=== PATIENT | female | born 2000 | race Caucasian/White ===

== ENCOUNTER 2023-02-25 13:50 | Emergency (ER) | payer OTHER, SELFPAY ==
[2023-02-25 13:59] VITALS: BP 139/87; PULSE 86; RESP 18; TEMP 37.1; O2SAT 100; BMI 30.9
[2023-02-25 14:19] LABS: Appearance Urine UA CLEAR; Bilirubin Urine UA NEGATIVE (NEGATIVE); Color Urine UA YELLOW; Glucose Urine UA NEGATIVE (Negative); Ketones Urine UA NEGATIVE (NEGATIVE); Leukocyte Esterase Urine UA NEGATIVE (NEGATIVE); Nitrite Urine UA NEGATIVE (Negative); Occult Blood Urine UA NEGATIVE (Negative); Protein Urine UA 2+ (Negative); Specific Gravity Urine UA 1.015 (1.000-1.035)
[2023-02-25 14:26] LABS: Bacteria Urine None Seen; Culture Indicated Urine Cult Not Indicated; RBC Urine None Seen (0-5/HPF); Squamous Epithelial Cell Urine 5-10 /HPF (0-5/HPF); WBC Urine None Seen (0-5/HPF)
[2023-02-25 15:09] LABS: Pregnancy Test Urine Negative (Negative)
--- NOTE | 2023-02-25 15:09 | PC.NURSE ---
pt reports that she is having pain in her hips and pelvic area that she describes as throbbing and sharp. pt states that the last time she has this feeling was when she had trichomonis without knowing about it for a long time. pt recently had pelvic swabs and pap smear done that came back normal and her std check was negative. pt denies having any vaginal discharge or abnormal bleeding. Denies fever, n/v/d. A&ox4
--- NOTE | 2023-02-25 15:16 | DI.US.S_ITS ---
PROCEDURE: US PELVIC COMPLETE INDICATIONS: PAIN TECHNIQUE: Real-time scanning was performed of the pelvic organs, with image documentation. Additional endovaginal scanning was necessary due to incomplete visualization of the adnexal and endometrial structures by transabdominal scanning. COMPARISON: None. FINDINGS: Uterus: Uterus is anteverted and normal in size at 9.1 x 5.6 x 4.8 cm. The myometrium is homogeneous. The endometrium measures 10 mm combined thickness. Ovaries: The right ovary measures 4.6 x 3.6 x 3.0 cm, with a calculated ovarian volume of 26 cc. The left ovary measures 5.0 x 3.0 x 3.0 cm, with a calculated ovarian volume of 24 cc. The ovaries have a normal sonographic appearance. Less than 12 follicles can be seen in each ovary. No adnexal masses are seen. There is a 2.4 x 2.2 x 2.0 cm right simple cyst or dominant follicle. Other: Trace free fluid is noted within the cul-de-sac. IMPRESSION: Trace fluid in the cul-de-sac. Otherwise unremarkable pelvic ultrasound. We strive to produce accurate, complete, and clear reports of imaging services. To assist us in improving patient care, this report was composed using standard report templates and voice recognition software. Therefore, it may contain abnormal punctuation, insertions and/or omissions. Occasional wrong-word or sound-alike substitutions may occur. Though we review the report and make efforts to correct it, we do recommend that the report be read carefully in proper context to recognize any text inaccuracies. Dictated by: Lynn Blevins M.D. on 02/25/2023 at 16:49 Approved by: Lynn Blevins M.D. on 02/25/2023 at 16:51
--- NOTE | 2023-02-25 15:16 | ED_ITS ---
HPI - Female Genitourinary General Chief complaint: Urogenital-Female Stated complaint: SEVERE PELVIC PAIN Time Seen by Provider: 02/25/23 15:06 Source: patient Mode of arrival: Ambulatory History of Present Illness HPI Narrative: 23-year-old female with no reported past medical history presents by private vehicle from home for bilateral pelvic pain. Patient states that she is had this pain for several months, 11 days ago she saw her OBGYN, who performed STD testing, a Pap smear, and pelvic exam and could not find any abnormalities. She states that her STD panel was negative and no cause for her pain was identified. She continues to have pain and is presenting for evaluation. Last menstrual period 02/08/2023. Uncertain if . Related Data Allergies Allergy/AdvReac Type Severity Reaction Status Date / Time No Known Drug Allergies Allergy Verified 02/25/23 13:59 Review of Systems Review of Systems Narrative: Negative except as noted above Patient History Substance Use Type: does not use Exam Initial Vital Signs Initial Vital Signs: Vital Signs Temperature 98.8 F 02/25/23 13:59 Pulse Rate 86 02/25/23 13:59 Respiratory Rate 18 02/25/23 13:59 Blood Pressure 139/87 02/25/23 13:59 Pulse Oximetry 100 02/25/23 13:59 Oxygen Delivery Method Room Air 02/25/23 13:59 Const: Awake, alert, no acute distress, nontoxic appearing Eyes: PERRL, EOMI, conjunctiva normal ENT: Atraumatic, dentition normal, mucous membranes moist Cardiac: regular rate, regular rhythm RESP: unlabored, clear bilaterally, no wheezing GI: Atraumatic, soft, nontender, nondistended, no rebound, no guarding MSK: Atraumatic, full range of motion, pulses equal Skin: Warm, Dry, intact, no rashes Neuro: AO x3, CN II-XII grossly intact, moves all extremities Psych: affect normal, mood normal, not suicidal, not homicidal Course Orders Ordered: Discontinued Medications Ondansetron HCl (Ondansetron 4 Mg Odt) 4 mg PO NOW PRN PRN Reason: Nausea And Vomiting Ondansetron HCl (Ondansetron 4 Mg/2 Ml Inj) 4 mg IV NOW PRN PRN Reason: Nausea And Vomiting Vital Signs Vital signs: Vital Signs - 8 hr 11/27/23 13:59 Temperature 98.8 F Pulse Rate 86 Respiratory Rate 18 Blood Pressure 139/87 Pulse Oximetry 100 Oxygen Delivery Method Room Air MDM - Female Genitourinary Differential Diagnosis Differential diagnosis: Likely urinary tract infection, ovarian cyst and ruptured ovarian cyst Lab Data 02/25/23 15:30 02/25/23 15:30 Labs: Lab Results 02/25/23 02/25/23 Range/Units 14:10 15:30 WBC 5.7 (4.5-11.0) X10^3/uL RBC 5.01 (4.0-5.2) X10^6/uL Hgb 11.8 L (12.0-16.0) g/dL Hct 36.6 (36-46) % MCV 73.2 L (80-100) fL MCH 23.5 L (26-34) PG MCHC 32.1 (30-36) % RDW 17.7 H (11.6-14.8) % Plt Count 357 (150-400) X10^3/uL Neut % (Auto) 68.1 (50-75) % Lymph % (Auto) 24.1 L (25-40) % [place] % (Auto) 6.5 (3-14) % Eos % (Auto) 0.7 L (2-4) % Baso % (Auto) 0.6 (0-2) % Neut # (Auto) 3900 (0801-7770) /uL Lymph # (Auto) 1400 (0504-4454) /uL [place] # (Auto) 400 (0-900) /uL Eos # (Auto) 0 (0-450) /uL Baso # (Auto) 0 (0-100) /uL Sodium 138 (137-145) mmol/L Potassium 4.3 (3.4-5.1) mmol/L Chloride 105 (98-107) mmol/L Carbon Dioxide 25 (22-32) mmol/L BUN 10 (7-17) mg/dL Creatinine 0.71 (0.52-1.04) mg/dL Estimated GFR > 60 (>60) mL/min BUN/Creatinine Ratio 14.1 (6-22) Glucose 102 H (70-100) mg/dL Calcium 9.7 (8.4-10.2) mg/dL Total Bilirubin 0.7 (0.2-1.3) mg/dL AST 23 (14-36) IU/L ALT 18 (<35) IU/L Alkaline Phosphatase 58 (38-126) U/L Total Protein 7.8 (6.3-8.2) g/dL Albumin 4.6 (3.5-5.0) g/dL Globulin 3.2 (1.7-4.1) g/dL Albumin/Globulin Ratio 1.4 (1.0-2.8) Lipase 63 (23-300) U/L Urine Color Yellow Urine Appearance Clear Urine pH 8.0 (4.5-8.0) Ur Specific Dix 1.015 (1.000-1.035) Urine Protein 2+ H (Negative) Urine Glucose (UA) Negative (Negative) g/dL Urine Ketones Negative (NEGATIVE) Urine Occult Blood Negative (Negative) Urine Nitrate Negative (Negative) Urine Bilirubin Negative (NEGATIVE) Urine Urobilinogen 1.0 (0.2) E.U./dL Ur Leukocyte Esterase Negative (NEGATIVE) Urine RBC None seen (0-5/HPF) Urine WBC None seen (0-5/HPF) Ur Squamous Epith Cells 5-10 /hpf H (0-5/HPF) Urine Bacteria None seen (None) Ur Culture Indicated? Cult not indicated Urine Test Negative (Negative) MDM Narrative Medical decision making narrative: Well-appearing patient with pelvic pain. Patient just had full panel of STD testing as well as pelvic exam done by OBGYN less than 2 weeks ago, patient's symptoms are same as when she was seen by her OBGYN, no utility in repeating exam at this time. Abdomen is soft, vital signs are within normal limits. We will order basic blood work and transvaginal ultrasound. Ultrasound shows no acute abnormalities. There is trace fluid in the cul-de-sac, otherwise normal appearing ovaries. Patient informed of lab and imaging results. She became tearful, stating that she was very concerned that she had ovarian cancer in his happy to know that her ultrasound is normal. She will follow up with her OBGYN for further investigation of her pelvic pain. Discharge Plan Departure Patient Disposition: Home Clinical Impression: Pelvic pain Instructions: DI for Pelvic Pain Activity Restrictions/Additional Instructions: Take Tylenol and Motrin as needed for pain. Follow up with your OBGYN to see if any additional testing needs to be performed. Stand Alone Forms: Patient Portal/API
[2023-02-25 15:41] LABS: Add Manual Diff / Slide Review NO; Basophils Absolute Auto 0 /uL (0-100); Basophils Percent Auto 0.6 % (0-2); Eosinophils Absolute Auto 0 /uL (0-450); Eosinophils Percent Auto 0.7 % (2-4); Hematocrit 36.6 % (36-46); Hemoglobin 11.8 g/dL (12.0-16.0); Lymphocytes Absolute Auto 1400 /uL (1100-4500); Lymphocytes Percent Auto 24.1 % (25-40); Mean Corpuscular HGB Conc 32.1 % (30-36); Mean Corpuscular Hemoglobin 23.5 PG (26-34); Mean Corpuscular Volume 73.2 fL (80-100); Monocytes Absolute Auto 400 /uL (0-900); Monocytes Percent Auto 6.5 % (3-14); Neutrophils Absolute Auto 3900 /uL (1500-7000); Neutrophils Percent Auto 68.1 % (50-75); Platelet Count 357 X10^3/uL (150-400); Red Blood Cell Count 5.01 X10^6/uL (4.0-5.2); Red Cell Distribution Width 17.7 % (11.6-14.8); White Blood Cell Count 5.7 X10^3/uL (4.5-11.0)
[2023-02-25 15:53] LABS: Alanine Aminotransferase 18 IU/L (<35); Albumin 4.6 g/dL (3.5-5.0); Albumin Globulin Ratio 1.4 (1.0-2.8); Alkaline Phosphatase 58 U/L (38-126); Aspartate Aminotransferase 23 IU/L (14-36); BUN Creatinine Ratio 14.1 (6-22); Bilirubin Total 0.7 mg/dL (0.2-1.3); Blood Urea Nitrogen 10 mg/dL (7-17); Calcium 9.7 mg/dL (8.4-10.2); Carbon Dioxide 25 mmol/L (22-32); Chloride 105 mmol/L (98-107); Estimated Glomerular Filt Rate > 60 mL/min (>60); Globulin 3.2 g/dL (1.7-4.1); Glucose 102 mg/dL (70-100); HEMOLYSIS < 15 (0-50); Lipase 63 U/L (23-300); Potassium 4.3 mmol/L (3.4-5.1); Sodium 138 mmol/L (137-145); Total Protein 7.8 g/dL (6.3-8.2)
[2023-02-25 16:37] VITALS: BP 163/97
== END 2023-02-25 16:37 | disposition home or self-care (01) ==
PROVIDERS: Emergency Provider Emergency Medicine
DX: R10.2 Pelvic and perineal pain (principal)
CPT/HCPCS: 36415; 76830; 76856; 80053; 81001; 81025; 83690; 85025; 93975; 99281; 99282

== ENCOUNTER 2023-03-04 11:51 | Day surgery (SDC) | payer OTHER, SELFPAY ==
--- NOTE | 2023-03-04 | PATH_ITS ---
[facility] Accession Number: [id number] No. of containers..02 Tissue . 01 Material submitted: . PART A: duodenum - DUODENUM PART B: stomach - ANTRUM . 01 Diagnosis: A. Duodenum, Biopsy: Duodenal mucosa with no diagnostic abnormality. Negative for active inflammation, features of sprue, dysplasia, or malignancy. . B. Stomach, Antrum, Biopsy: Antral mucosa with mild chronic gastritis. Negative for Helicobacter by immunohistochemistry. Negative for intestinal metaplasia. Negative for dysplasia and malignancy. . MRV 03/13/2023 1740 Local . 01 Electronically signed: . Sherita Torrez MD, Pathologist NPI- [id number] . 01 Gross description: . Part A: DUODENUM: Received in formalin are 4 fragment(s) of vail, soft tissue measuring 0.1 x 0.1 x 0.1 cm to 0.3 x 0.3 x 0.2 cm submitted entirely in 1 cassette(s) Part B: ANTRUM: Received in formalin are 2 fragment(s) of vail, soft tissue measuring 0.1 x 0.1 x 0.1 cm to 0.3 x 0.3 x 0.2 cm submitted entirely in 1 cassette(s) /TK 03/05/2023 1911 Local . 01 Microscopic: . B. An immunohistochemical stain was performed to evaluate for Helicobacter organisms and is negative. The control stain showed appropriate reactivity. . * This test was developed and its performance characteristics determined by [employer]. It has not been cleared or approved by the U.S. Food and Drug Administration. The FDA has determined that such clearance or approval is not necessary. This test is used for clinical purposes. It should not be regarded as investigational or for research. . 01 Pathologist provided ICD-10: R10.13, R12 . 01 CPT . 364637, 542889, H02215 Specimen Comment: A courtesy copy of this report has been sent to [phone] Performed at: 01 [facility] [address] [place] [address], [place], [place] [id number] MD Florentin Galvan MD Phone: [phone]
[2023-03-04] MEDS: LACTATED RINGERS 1,000 ML 42 ML IV (12:04)
[2023-03-04 12:14] VITALS: BP 105/70; PULSE 79; RESP 18; TEMP 36.5; O2SAT 97; BMI 30.9
--- NOTE | 2023-03-04 12:52 | P.HP_ITS ---
History of Present Illness History of Present Illness Date Patient Seen: 03/04/23 Time Patient Seen: 12:52 Chief complaint: SDC Narrative: 23-year-old female with symptoms of abdominal pain nausea intermittent vomiting and diarrhea. She is on an acid secretary of state at this point reports about a 45-50% overall improvement. Colonoscopy was done recently and did not explain her symptoms so she reports for EGD today. [facility] Social History household members: spouse Smoking Status: Never smoker alcohol intake: never Meds Home Medications and Allergies Home Medications Medication Instructions Recorded Confirmed Type sertraline 50 mg tablet 50 mg PO DAILY 03/04/23 03/04/23 History Allergies Allergy/AdvReac Type Severity Reaction Status Date / Time No Known Drug Allergies Allergy Verified 03/04/23 12:08 Review of Systems Review of Systems ROS: Yes All systems reviewed with the patient and are negative except as otherwise documented Exam Vital Signs (past 8 hours): - 03/04/23 12:14 Temperature 97.7 F Pulse Rate 79 Respiratory Rate 18 Blood Pressure 105/70 Pulse Oximetry 97 Oxygen Delivery Method Room Air Oxygen Delivery Method Room Air Const General: cooperative HENMT Head: normal to inspection Eyes General: appearance normal, both eyes and all related structures Neck Neck: normal visual inspection Chest Chest: normal inspection of the chest Resp Effort & Inspection: normal respiratory effort Cardio Rate: regular rate GI Inspection: normal to inspection Skin General: no rashes or lesions noted Neuro General: patient alert and patient awake Extrem General: normal to inspection and no pedal edema Psych Appearance: grossly normal Assessment & Plan Assessment & Plan narrative: 23-year-old female with nausea, intermittent vomiting, abdominal pain, diarrhea. Diagnostic EGD is pursued today.
--- NOTE | 2023-03-04 13:06 | PM.PREOP ---
Pre-operative Note Interval Note History & Physical reviewed/Exam performed by Physician: Yes Changes to H&P: No ASA Class (for procedural sedation): I
--- NOTE | 2023-03-04 13:51 | PM.OP.EGD ---
Operative Date/Time/Diagnoses Date of procedure: 03/04/23 Time of procedure: 13:51 Pre-op diagnosis: Abdominal pain nausea vomiting intermittent diarrhea. Post-op diagnosis: same Procedure & Clinicians Study performed: EGD with biopsies Same procedure as scheduled: Yes Indications: Abdominal pain nausea vomiting intermittent diarrhea Surgeon: Edson Chun Procedure Notes SCOAP/Timeout: Done Procedure in detail: After the risks and benefits were explained, written and verbal informed consent was obtained. The patient was brought into the procedure room and placed into the left lateral decubitus position. Please see anesthesia note for sedation details. The scope was introduced into the mouth through the bite block and advanced under direct visualization to the 2nd portion of the duodenum. The scope was slowly withdrawn carefully examining the mucosa for any defects or lesions. Retroflexed views were accomplished in the stomach. The stomach was decompressed, the scope was then removed from the patient who tolerated the procedure well. Sedation minutes: 8 Complications: none Impression: 1. Duodenum: No pathology from the bulb through to the 2nd portion. Random D2 biopsies were taken for exclusion of sprue. 2. Stomach: No ulcers. No outlet obstruction. No mass lesions. Mild diffuse gastropathy was identified in the antrum and biopsies were therefore acquired for exclusion of H pylori. Retroflexed views of the LES were unremarkable. 3. Esophagus: The squamocolumnar junction correlated with the top of the gastric folds. The GEJ was at about 40 cm from the incisors. No linear erosive features identified in the distal esophagus. The esophagus was essentially normal in appearance. Endoscopic diagnosis 1. Mild gastropathy 2. Otherwise visually unremarkable EGD Post-procedure Plan for aftercare: 1. Await histology. 2. If Helicobacter is found, it will need to be eradicated with standard triple therapy. 3. Follow up in GI clinic. Disposition: PACU
[2023-03-04 13:53] VITALS: BP 103/65; PULSE 76; RESP 15; TEMP 36.7; O2SAT 95
[2023-03-04 13:58] VITALS: BP 104/66; PULSE 74; RESP 13; O2SAT 96
[2023-03-04 14:04] VITALS: BP 106/69; PULSE 83; RESP 20; O2SAT 100
[2023-03-04 14:07] VITALS: BP 114/77; PULSE 68; RESP 20; TEMP 36.3; O2SAT 100
== END 2023-03-04 14:21 | disposition home or self-care (01) ==
PROVIDERS: Referring Provider Internal Medicine Gastroenterology; Visit Provider Internal Medicine Gastroenterology
PROC: 0DJ08ZZ Inspection of Upper Intestinal Tract, Via Natural or Artificial Opening Endoscopic (ICD-10-PCS; CPT 43235; principal; 2023-03-04 13:00)
DX: R10.9 Unspecified abdominal pain (principal); R19.7 Diarrhea, unspecified; K31.9 Disease of stomach and duodenum, unspecified; K29.50 Unspecified chronic gastritis without bleeding
CPT/HCPCS: 43239; 81025; J2704

== ENCOUNTER 2023-05-13 09:58 | Emergency (ER) | payer OTHER, SELFPAY ==
[2023-05-13 10:04] VITALS: BP 135/92; PULSE 76; RESP 19; TEMP 36.8; O2SAT 99; BMI 32.5
[2023-05-13 11:36] VITALS: BP 127/70; PULSE 74; RESP 20; O2SAT 97
[2023-05-13] MEDS: KETOROLAC 30 MG/ML VIAL IM (11:37)
--- NOTE | 2023-05-13 12:06 | ED.CHESTPAIN ---
HPI - Chest Pain <Maria Elena Ellis PA-C - Last Filed: 05/13/23 12:09> General Chief Complaint: Chest Pain Stated Complaint: chest pains t-3 Time Seen by Provider: 05/13/23 11:16 Source: patient Mode of arrival: Ambulatory Limitations: no limitations History of Present Illness HPI narrative: 23-year-old female with no reported past medical history presents to the ED with 3 weeks of left-sided chest pain and sternum pain. Patient states that 3 weeks ago when she lay on her left side she would feel a clicking near her sternum, patient states that the pain radiates from the sternum all the way to the left armpit. Pain is aggravated with movement and laying on the left side. No shortness of breath. No fevers and chills. Patient has been taking Tylenol with minimal relief. Patient denies trauma. Patient does have a 2-year-old and frequently lifts the child. Related Data Home Medications Medication Instructions Recorded Confirmed sertraline 50 mg tablet 50 mg PO DAILY 03/04/23 03/04/23 Allergies Allergy/AdvReac Type Severity Reaction Status Date / Time No Known Drug Allergies Allergy Verified 03/04/23 12:08 Review of Systems <Maria Elena Ellis PA-C - Last Filed: 05/13/23 12:09> Constitutional Constitutional: Denies chills, Denies fatigue, Denies fever(s), Denies frequent falls, Denies lethargy and Denies weakness Eyes Eyes: Denies change in vision, Denies eye discharge, Denies irritation and Denies loss of vision ENT Ears, Nose, Mouth, and Throat: Denies change in voice, Denies dizziness, Denies neck pain, Denies sore throat and Denies throat swelling Cardiovascular Cardiovascular: Reports chest pain, Denies irregular heart rhythm, Denies lightheadedness, Denies palpitations, Denies dyspnea, Denies dyspnea on exertion and Denies orthopnea Respiratory Respiratory: Denies cough, Denies dyspnea, Denies dyspnea on exertion and Denies wheezing Gastrointestinal Gastrointestinal: Denies abdominal pain, Denies change in bowel habits, Denies diarrhea, Denies nausea and Denies vomiting Musculoskeletal Musculoskeletal: Denies neck pain and Denies numbness Integumentary/Breasts Skin/Breast: Denies pruritus, Denies erythema, Denies rash and Denies wounds Neurologic Neurologic: Denies behavioral changes, Denies confusion, Denies dizziness, Denies frequent falls, Denies loss of vision, Denies numbness and Denies weakness Psychiatric Psychiatric: Denies anxiety, Denies behavioral changes, Denies confusion, Denies depression, Denies homicidal ideation and Denies suicidal ideation Endocrine Endocrine: Denies fatigue, Denies flushing and Denies palpitations Hematologic/Lymphatic Hematologic/Lymphatic: Denies easy bruising Allergic/Immunologic Allergic/Immunologic: Denies urticaria, Denies throat swelling and Denies wheezing Patient History <Maria Elena Ellis PA-C - Last Filed: 05/13/23 12:09> Social History household members: spouse Smoking Status: Never smoker alcohol intake: never Smoking Status: Never smoker Substance Use Type: does not use Exam <Maria Elena Ellis PA-C - Last Filed: 05/13/23 12:09> Narrative Exam Narrative: Const General:?cooperative, healthy appearing and comfortable [facility] Head:?normal to inspection Ears:?hearing grossly normal bilaterally Nose:?external nose normal Face and sinus:?normal facial exam and sinuses nontender Mouth:?oral mucosae normal Throat:?posterior oropharynx normal Eyes General:?appearance normal, both eyes and all related structures Neck Neck:?normal visual inspection and no lymphadenopathy noted Resp Effort & Inspection:?normal respiratory effort Auscultation:?clear to auscultation bilaterally Cardio Rate:?regular rate Rhythm:?regular rhythm No chest wall tenderness to palpation Neuro General:?patient alert, patient awake and patient oriented x3 Initial Vital Signs Initial Vital Signs: Vital Signs Temperature 98.2 F 05/13/23 10:04 Pulse Rate 76 05/13/23 10:04 Respiratory Rate 05/13/23 10:04 Blood Pressure 135/92 H 05/13/23 10:04 Pulse Oximetry 99 05/13/23 10:04 Oxygen Delivery Method Room Air 05/13/23 10:04 <Yazmin Waller DO - Last Filed: 05/13/23 19:11> Initial Vital Signs Initial Vital Signs: Vital Signs Temperature 98.2 F 05/13/23 10:04 Pulse Rate 76 05/13/23 10:04 Respiratory Rate 05/13/23 10:04 Blood Pressure 135/92 H 05/13/23 10:04 Pulse Oximetry 99 05/13/23 10:04 Oxygen Delivery Method Room Air 05/13/23 10:04 Course <Maria Elena Ellis PA-C - Last Filed: 05/13/23 12:09> Orders Ordered: Discontinued Medications Ketorolac Tromethamine (Ketorolac 30 Mg/Ml Vial) 30 mg IM NOW ONE Stop: 05/13/23 11:34 Last Admin: 05/13/23 11:37 Dose: 30 mg Documented By: RL Vital Signs Vital signs: Vital Signs - 8 hr 05/13/23 11:36 Pulse Rate 74 Respiratory Rate 20 Blood Pressure 127/70 Pulse Oximetry 97 Oxygen Delivery Method Room Air <Yazmin Waller DO - Last Filed: 05/13/23 19:11> Orders Ordered: Discontinued Medications Ketorolac Tromethamine (Ketorolac 30 Mg/Ml Vial) 30 mg IM NOW ONE Stop: 05/13/23 11:34 Last Admin: 05/13/23 11:37 Dose: 30 mg Documented By: RL Vital Signs Vital signs: Vital Signs - 8 hr 05/13/23 11:36 Pulse Rate 74 Respiratory Rate 20 Blood Pressure 127/70 Pulse Oximetry 97 Oxygen Delivery Method Room Air MDM - Chest Pain <Maria Elena Ellis PA-C - Last Filed: 05/13/23 12:09> MDM Narrative Medical decision making narrative: 23-year-old female with no reported past medical history presents to the ED with 3 weeks of left-sided chest pain and sternum pain. Patient's symptoms are most consistent with a musculoskeletal sprain/strain. Recommend pain control with lidocaine patches, Tylenol, ibuprofen. Patient was given a shot of Toradol in the ED today for pain relief. ED return precautions discussed with patient. Patient verbalized understanding. Medical records reviewed: Yes Discharge Plan Departure Patient Disposition: Home Clinical Impression: Atypical chest pain Instructions: DI for Atypical Chest Pain Activity Restrictions/Additional Instructions: You were evaluated in the ED today for chest pain. It appears that your pain is most consistent with a musculoskeletal sprain/strain. You may apply lidocaine patches that are available [id number]. You may take 800 mg of ibuprofen every 8 hours with food, and also 1000 mg of Tylenol every 8 hours. Return to the ED if you have worsening symptoms, shortness of breath. Prescriptions: No Action sertraline 50 mg tablet 50 mg PO DAILY Stand Alone Forms: Patient Portal/API ED Sign-out <Yazmin Waller DO - Last Filed: 05/13/23 19:11> Cosign ED Attending Cosignature Attestation: I was immediately available in the department for consultation.
== END 2023-05-13 11:54 | disposition home or self-care (01) ==
PROVIDERS: Emergency Provider Student in an Organized Health Care Education/Training Program
DX: R07.89 Other chest pain (principal)
CPT/HCPCS: 93005; 93010; 96372; 99283; J1885

== ENCOUNTER 2024-06-28 00:36 | Emergency (ER) | payer OTHER, SELFPAY ==
[2024-06-28] VITALS (8 sets, daily range): BP systolic 116–152; BP diastolic 69–96; PULSE 86–104; RESP 16–23; TEMP 36.5; O2SAT 96–99; BMI 30.9
--- NOTE | 2024-06-28 00:44 | EKG_ITS ---
[facility] [address] [address] Test Date: 2024-06-28 Pat Name: Nguyen Bradley Department: [facility] Room: Gender: Female [employer]: : 2000 Requested By: Order Number: [id number] Reading MD: Donn Mo MD Measurements Intervals [place] Rate: 95 P: 47 OR: 150 QRS: 33 QRSD: 90 T: 19 QT: 352 QTc: 442 Interpretive Statements Sinus rhythm with premature atrial complexes with aberrant conduction Electronically Signed On 06-28-2024 8:52:04 PDT by Donn Mo MD
[2024-06-28 01:03] LABS: Add Manual Diff / Slide Review NO; Basophils Absolute Auto 100 /uL (0-100); Basophils Percent Auto 0.7 % (0-2); Eosinophils Absolute Auto 200 /uL (0-450); Eosinophils Percent Auto 1.8 % (2-4); Hematocrit 38.4 % (36-46); Hemoglobin 12.7 g/dL (12.0-16.0); Lymphocytes Absolute Auto 2500 /uL (1100-4500); Lymphocytes Percent Auto 24.7 % (25-40); Mean Corpuscular HGB Conc 33.1 % (30-36); Mean Corpuscular Hemoglobin 25.8 PG (26-34); Mean Corpuscular Volume 77.7 fL (80-100); Monocytes Absolute Auto 700 /uL (0-900); Monocytes Percent Auto 7.3 % (3-14); Neutrophils Absolute Auto 6600 /uL (1500-7000); Neutrophils Percent Auto 65.5 % (50-75); Platelet Count 311 X10^3/uL (150-400); Red Blood Cell Count 4.95 X10^6/uL (4.0-5.2); White Blood Cell Count 10.1 X10^3/uL (4.5-11.0)
[2024-06-28 01:07] LABS: Alanine Aminotransferase 29 IU/L (<35); Albumin 4.5 g/dL (3.5-5.0); Albumin Globulin Ratio 1.5 (1.0-2.8); Alkaline Phosphatase 61 U/L (38-126); Aspartate Aminotransferase 28 IU/L (14-36); BUN Creatinine Ratio 16.5 (6-22); Bilirubin Total 0.6 mg/dL (0.2-1.3); Blood Urea Nitrogen 13 mg/dL (7-17); Calcium 9.6 mg/dL (8.4-10.2); Carbon Dioxide 25 mmol/L (22-32); Chloride 104 mmol/L (98-107); Estimated Glomerular Filt Rate > 60 mL/min (>60); Glucose 88 mg/dL (70-100); HEMOLYSIS < 15 (0-50); Lipase 86 U/L (23-300); Potassium 3.9 mmol/L (3.4-5.1); Sodium 139 mmol/L (137-145); Total Protein 7.5 g/dL (6.3-8.2)
--- NOTE | 2024-06-28 02:47 | ED_ITS ---
HPI - Chest Pain General Chief Complaint: Chest Pain Stated Complaint: Chest pain that radiates to back, SOB Time Seen by Provider: 06/28/24 00:54 Source: patient Mode of arrival: Ambulatory Limitations: no limitations History of Present Illness HPI narrative: 24-year-old woman with no significant medical history comes in complaining of right-sided chest pain that seems to initially begin along the right sternal border and then wraps around under her breast her right scapula. He has not any abdominal pain, no nausea vomiting tenderness. Pain is worse with deep breathing, positioning is not necessarily making it worse. She has not recently had any fever coughs or chills. There are no complaints of dyspnea orthopnea. She notes that this problem has been intermittently present for over a year. She currently has a 2-year-old little girl whom she is busy caring for repeated lifting and twisting of her child. Related Data Home Medications Medication Instructions Recorded Confirmed sertraline 50 mg tablet 50 mg PO DAILY 03/04/23 03/04/23 Allergies Allergy/AdvReac Type Severity Reaction Status Date / Time No Known Drug Allergies Allergy Verified 03/04/23 12:08 Review of Systems Review of Systems Narrative: Pertinent positive and negative findings as per HPI Patient History Social History household members: spouse Smoking Status: Never smoker alcohol intake: never Smoking Status: Never smoker Exam Initial Vital Signs Initial Vital Signs: Vital Signs Temperature 97.7 F 06/28/24 00:47 Pulse Rate 100 H 06/28/24 00:47 Respiratory Rate 16 06/28/24 00:47 Blood Pressure 152/96 H 06/28/24 00:47 Pulse Oximetry 98 06/28/24 00:47 Oxygen Delivery Method Room Air 06/28/24 00:47 General: Healthy appearing, in no acute distress. Able to give a complete and coherent history. Well-nourished well-developed HEENT: Moist mucous membranes, normal sclera with reactive pupils, Respiratory: Lungs are clear to auscultation, no wheezing no rales no rhonchi. Full and symmetrical air movement Chest: Minor tenderness along the lower right sternal border, no skin changes, no reproducible pain with rib manipulation or thoracic wall compression Cardiac: Regular rate and rhythm no murmurs no bruits Abdomen: Soft, nontender, no right upper quadrant tenderness, no rebound or guarding, no flank pain Skin: Warm and dry, no rashes Neurologic: Grossly neurologically intact with no obvious asymmetries or abnormalities Extremities: No trauma, well perfused Psych: Cooperative, appropriate insight and affect Course Orders Ordered: ED Orders 06/28/24 00:39 EKG-12 Lead Stat 06/28/24 00:48 Complete Blood Count AUTO DIFF Stat Comprehensive Metabolic Panel Stat Lipase Stat Ondansetron HCl (Ondansetron 4 Mg/2 Ml Inj) 4 mg IV NOW PRN PRN Reason: Nausea And Vomiting Ondansetron HCl (Ondansetron 4 Mg Odt) 4 mg PO NOW PRN PRN Reason: Nausea And Vomiting Vital Signs Vital signs: Vital Signs - 8 hr 06/28/24 00:47 Temperature 97.7 F Pulse Rate 100 H Respiratory Rate 16 Blood Pressure 152/96 H Pulse Oximetry 98 Oxygen Delivery Method Room Air MDM - Chest Pain Lab Data 06/28/24 00:48 06/28/24 00:48 Labs: Lab Results 06/28/24 Range/Units 00:48 WBC 10.1 (4.5-11.0) X10^3/uL RBC 4.95 (4.0-5.2) X10^6/uL Hgb 12.7 (12.0-16.0) g/dL Hct 38.4 (36-46) % MCV 77.7 L (80-100) fL MCH 25.8 L (26-34) PG MCHC 33.1 (30-36) % RDW 15.0 H (11.6-14.8) % Plt Count 311 (150-400) X10^3/uL Neut % (Auto) 65.5 (50-75) % Lymph % (Auto) 24.7 L (25-40) % [place] % (Auto) 7.3 (3-14) % Eos % (Auto) 1.8 L (2-4) % Baso % (Auto) 0.7 (0-2) % Neut # (Auto) 6600 (8744-1310) /uL Lymph # (Auto) 2500 (0217-5658) /uL [place] # (Auto) 700 (0-900) /uL Eos # (Auto) 200 (0-450) /uL Baso # (Auto) 100 (0-100) /uL Sodium 139 (137-145) mmol/L Potassium 3.9 (3.4-5.1) mmol/L Chloride 104 (98-107) mmol/L Carbon Dioxide 25 (22-32) mmol/L BUN 13 (7-17) mg/dL Creatinine 0.79 (0.52-1.04) mg/dL Estimated GFR > 60 (>60) mL/min BUN/Creatinine Ratio 16.5 (6-22) Glucose 88 (70-100) mg/dL Calcium 9.6 (8.4-10.2) mg/dL Total Bilirubin 0.6 (0.2-1.3) mg/dL AST 28 (14-36) IU/L ALT 29 (<35) IU/L Alkaline Phosphatase 61 (38-126) U/L Total Protein 7.5 (6.3-8.2) g/dL Albumin 4.5 (3.5-5.0) g/dL Globulin 3.0 (1.7-4.1) g/dL Albumin/Globulin Ratio 1.5 (1.0-2.8) Lipase 86 (23-300) U/L MDM Narrative Medical decision making narrative: Otherwise healthy 24-year-old woman 2-year-old child with the currently on deployment presents with right-sided chest pain that has been bothering her intermittently for the last year. For the last 48 hours has been significantly worse. She notes that deep breathing does not help but does not exacerbate it. Twisting and some movements can make it worse. It is not abdominal pain, not related to eating and not associated with exertion. Lab work does not suggest liver renal abnormalities, no signs of significant infection or anemia. EKG shows sinus rhythm with no acute changes. Physical exam is otherwise benign with no obviously reproducible pain. There currently is no evidence for acute coronary syndrome, pneumonia pneumothorax, gallbladder disease, upper GI bleeding. I suspect that this is musculoskeletal pain and shared that concern with the patient. Recommended follow up with the primary care physician and consideration of physical therapy to see if she can actually understand where the pain stemming from to try to correct the source. There was no indication for additional imaging or hospitalization at this time and she is safe for discharge Discharge Plan Departure Patient Disposition: Home Clinical Impression: Chest pain, musculoskeletal Instructions: DI for Musculoskeletal Pain Activity Restrictions/Additional Instructions: Thank you for coming in today I am sorry that you are continuing to suffer with this right-sided chest pain. I and able to tell you that you have no life-threatening findings to explain it. Specifically I am seeing no sign of heart attack, pneumonia, collapsed lung, gallbladder disease. I suspect that it is related to muscles and ligaments and I also suspect that carry around your young child is either re-injuring it were not allowing it to heal completely. * if you do not have a primary care physician, you can contact [facility] at [phone]. They can help get you set up with a physician in our local community Using 400 mg of ibuprofen (2 [id number] pills) and 1 Tylenol every 6 hours can be very helpful in controlling pain. You may find that your new primary care physician is able to refer you to a physical therapist to see if we can actually understand where your pain is coming from so that we can help you actually get to pain-free. If you find that you are getting worse or develop any new symptoms, please feel free to return to the emergency department for further evaluation. Prescriptions: No Action sertraline 50 mg tablet 50 mg PO DAILY Stand Alone Forms: Patient Portal/API/Survey
[2024-06-28] MEDS: KETOROLAC 30 MG/ML VIAL 15 MG IV (03:03)
== END 2024-06-28 03:13 | disposition home or self-care (01) ==
PROVIDERS: Emergency Provider Emergency Medicine
DX: R07.89 Other chest pain (principal)
CPT/HCPCS: 36415; 80053; 83690; 85025; 93005; 96374; 99284; J1885

== ENCOUNTER 2025-02-01 22:13 | Emergency (ER) | payer OTHER, SELFPAY ==
--- NOTE | 2025-02-01 22:17 | PC.NURSE ---
Patient overheard telling his mom that he thinks he's going to be held and spectated against and put on meds that don't help because there's nothing that will fix it. Also states all we care about is the paycheck from the government that will come when I get out of here. Stated that one third of my brain isn't as apathetic as the other which is why I couldn't go through with it.
[2025-02-01 22:22] VITALS: BP 174/89; PULSE 101; RESP 16; TEMP 36.5; O2SAT 99; BMI 41.1
[2025-02-01 22:23] VITALS: PULSE 87; O2SAT 100
[2025-02-01 22:31] VITALS: PULSE 79; O2SAT 100
[2025-02-01 23:00] VITALS: PULSE 75; O2SAT 96
[2025-02-01 23:08] VITALS: BP 169/84; O2SAT 97
--- NOTE | 2025-02-01 23:18 | ED_ITS ---
HPI - Arrhythmia/Palpitations
--- NOTE | 2025-02-01 23:18 | ED.ARRPALP ---
HPI - Arrhythmia/Palpitations General Chief Complaint: Arrhythmia/Palpitations Stated Complaint: medication reaction/ palpitations/weakness Time Seen by Provider: 02/01/25 22:29 Source: patient Mode of arrival: Ambulatory History of Present Illness HPI narrative: 25-year-old female reports history of ADHD and bipolar disorder, had been treated with Wellbutrin in the past but it was not tolerated or effective, in the last couple of months is titrating up new medication Vyvanse, 10 mg daily dosing start, titrated up by 10 mg increments 2-3 weeks at a time, had been on 30 mg, for the last one-week taking 40 mg daily, took her evening dose 9:30 p.m. a 40 mg. Having palpitation symptoms and dizziness and felt like she might pass out. Related Data Home Medications ?Medication ?Instructions ?Recorded ?Confirmed sertraline 50 mg tablet 50 mg PO DAILY 03/04/23 03/04/23 Previous Rx's ?Medication ?Instructions ?Recorded amoxicillin 875 mg-potassium 1 tab PO BID #19 tabs 11/22/24 clavulanate 125 mg tablet Allergies Allergy/AdvReac Type Severity Reaction Status Date / Time No Known Drug Allergies Allergy Verified 02/01/25 22:22 Patient History Social History household members: spouse alcohol intake: never Exam Narrative Exam Narrative: GENERAL: Well-developed patient, in mild distress. HEAD: Atraumatic. Normocephalic. EYES: Pupils equal round and reactive. Extraocular motions intact. No scleral icterus. No injection or drainage. ENT: Nose without bleeding, purulent drainage. Throat without erythema, tonsillar hypertrophy or exudate. Airway patent. NECK: Trachea midline. Non tender CARDIOVASCULAR: Increased rate, regular rhythm. No murmurs, gallops, or rubs. RESPIRATORY: Clear to auscultation. Breath sounds equal bilaterally. No wheezes, rales, or rhonchi. GASTROINTESTINAL: Abdomen soft, non-tender, nondistended. EXTREMITIES: No edema or joint tenderness. BACK: Nontender without deformity or crepitance. No flank tenderness. NEURO: AOx3. Motor functions grossly nonfocal. SKIN: No rash or erythema of visible areas Initial Vital Signs Initial Vital Signs: Vital Signs Temperature 97.7 F 02/01/25 22:22 Pulse Rate 101 H 02/01/25 22:22 Respiratory Rate 16 02/01/25 22:22 Blood Pressure 174/89 H 02/01/25 22:22 Pulse Oximetry 99 02/01/25 22:22 Oxygen Delivery Method Room Air 02/01/25 22:22 Course Orders Ordered: ED Orders 02/01/25 22:21 EKG-12 Lead Stat 02/01/25 23:40 EKG-12 Lead Stat 02/01/25 23:56 CBC Auto Diff [Complete Blood Count AUTO DIFF] Stat CMP [Comprehensive Metabolic Panel] Stat Magnesium Stat 02/02/25 00:03 Troponin I Stat 02/02/25 00:33 Urine Drug Screen, Rapid Stat Discontinued Medications Acetaminophen (Acetaminophen 325 Mg Tablet) 650 mg PO Q4H PRN PRN Reason: Fever/Mild Pain (1-3) Last Admin: 02/02/25 00:13 Dose: 650 mg Documented By: JAME Vital Signs Vital signs: Vital Signs - 8 hr 02/01/25 22:22 02/01/25 22:23 02/01/25 22:31 Temperature 97.7 F Pulse Rate 101 H 87 79 Respiratory Rate 16 Blood Pressure 174/89 H Pulse Oximetry 99 100 100 Oxygen Delivery Method Room Air 02/01/25 23:00 02/01/25 23:08 02/01/25 23:08 Temperature Pulse Rate 75 Respiratory Rate Blood Pressure 169/84 H Pulse Oximetry 96 97 Oxygen Delivery Method 02/01/25 23:30 02/02/25 00:00 02/02/25 00:14 Temperature Pulse Rate 75 85 69 Respiratory Rate 19 20 21 Blood Pressure Pulse Oximetry 98 97 98 Oxygen Delivery Method 02/02/25 00:14 02/02/25 01:26 02/02/25 01:27 Temperature Pulse Rate 86 82 Respiratory Rate Blood Pressure 135/84 Pulse Oximetry 98 99 Oxygen Delivery Method 02/02/25 01:50 02/02/25 02:07 Temperature Pulse Rate 78 Respiratory Rate 16 Blood Pressure 140/75 Pulse Oximetry 81 L 98 Oxygen Delivery Method Room Air MDM - Arrhythmia/Palpitations Lab Data Attestation: I reviewed the patient's lab results. Lab results narrative: White blood cell count 7200, hemoglobin 12.5, platelets adequate. Glucose 102. Renal function, serum CO2, electrolytes normal, including potassium and sodium and magnesium. ALT slight elevation, other liver functions normal. Troponin negative. Urine tox screen positive for amphetamine. Urine test negative. 02/01/25 23:56 02/01/25 23:56 Labs: Lab Results 02/01/25 02/02/25 Range/Units 23:56 00:33 WBC 7.2 (4.5-11.0) X10^3/uL RBC 4.87 (4.0-5.2) X10^6/uL Hgb 12.5 (12.0-16.0) g/dL Hct 37.7 (36-46) % MCV 77.3 L (80-100) fL MCH 25.7 L (26-34) PG MCHC 33.3 (30-36) % RDW 14.5 (11.6-14.8) % Plt Count 315 (150-400) X10^3/uL Neut % (Auto) 57.0 (50-75) % Lymph % (Auto) 31.2 (25-40) % [place] % (Auto) 8.8 (3-14) % Eos % (Auto) 2.6 (2-4) % Baso % (Auto) 0.4 (0-2) % Neut # (Auto) 4100 (3569-9238) /uL Lymph # (Auto) 2300 (2102-6753) /uL [place] # (Auto) 600 (0-900) /uL Eos # (Auto) 200 (0-450) /uL Baso # (Auto) 0 (0-100) /uL Sodium 139 (137-145) mmol/L Potassium 4.3 (3.4-5.1) mmol/L Chloride 104 (98-107) mmol/L Carbon Dioxide 26 (22-32) mmol/L BUN 12 (7-17) mg/dL Creatinine 0.80 (0.52-1.04) mg/dL Estimated GFR > 60 (>60) mL/min BUN/Creatinine Ratio 15.0 (6-22) Glucose 102 H (70-99) mg/dL Calcium 9.1 (8.4-10.2) mg/dL Magnesium 2.1 (1.6-2.3) mg/dL Total Bilirubin 0.5 (0.2-1.3) mg/dL AST 30 (14-36) IU/L ALT 45 H (<35) IU/L Alkaline Phosphatase 66 (38-126) U/L Troponin I < 0.012 (0.01-0.034) ng/mL Total Protein 7.3 (6.3-8.2) g/dL Albumin 4.4 (3.5-5.0) g/dL Globulin 2.9 (1.7-4.1) g/dL Albumin/Globulin Ratio 1.5 (1.0-2.8) U Opiates 300ng/mL cut Negative (Negative) Ur Oxycodone Screen Negative (Negative) Urine Methadone Screen Negative (Negative) Ur Barbiturates Screen Negative (Negative) U Tricyclic Antidepress Negative (Negative) Ur Phencyclidine Scrn Negative (Negative) Ur Amphetamines Screen Positive H (Negative) U Methamphetamines Scrn Negative (Negative) Ur MDMA Scrn (Ecstasy) Negative (Negative) U Benzodiazepines Scrn Negative (Negative) Urine Cocaine Screen Negative (Negative) U Marijuana (THC) Screen Negative (Negative) Urine pH TNP Urine Specific [place] TNP Ur Creatinine TNP Point of Care Testing Test Results Negative ECG Data Attestation: I personally reviewed and interpreted this ECG as follows: Interpretation: 2229, normal sinus rhythm with rate of 81, no obvious ST segment elevation or depression changes. ND 158, QRS 92, QTC 441. No ectopy. [facility] Narrative Medical decision making narrative: 25-year-old female with history of PTSD, previously on Wellbutrin who was not tolerated, has been titrated up Vyvanse, had been on 30 mg daily, for the last 1 week titrated up to 40 mg daily, last dose 9:30 p.m. usually takes once a day at night, feeling palpitations, felt like she might pass out. Heart rate increased. Blood pressure increased. Lab data: White blood cell count 7200, hemoglobin 12.5, platelets adequate. Glucose 102. Renal function, serum CO2, electrolytes normal, including potassium and sodium and magnesium. ALT slight elevation, other liver functions normal. Troponin negative. Urine tox screen positive for amphetamine. Urine test negative. Patient observed without specific treatment. Blood pressure improved, heart rate normalized. Patient advised to hold Vyvanse dose tomorrow, then consider restart at most recent lower dose 30 mg daily that had been tolerated. Advised to discuss Vyvanse dosing or alternate medication with her psychiatric care provider. Discharged home with family. Return precautions discussed. Discharge Plan Departure Patient Disposition: Home Clinical Impression: Palpitations, Medication adverse effect Activity Restrictions/Additional Instructions: History of PTSD with previous treatment Wellbutrin not tolerated. More recently last couple of months with titrating up dosage of Vyvanse medication, having been on 30 mg daily, for the last week on most recent increased interval dosing of 40 mg daily, took evening dose last night. [place] some palpitations and sensation that you might pass out. EKG and blood testing reassuring. Initial elevated heart rate and blood pressure at triage. Blood pressure and pulse improved with passage of time and metabolism of the medication, without specific treatments. Consider holding your dose tomorrow and then perhaps resuming 30 mg dose daily, then contacting your prescriber just see if this medication we will be useful for you at that dosage, or discontinued and changed to some other class of medication. Return earlier to this/nearest emergency department for any change worsening symptoms or any concerns prior. Prescriptions: No Action sertraline 50 mg tablet 50 mg PO DAILY amoxicillin-pot clavulanate 875-125 mg tablet 1 tab PO BID Qty: 19 0RF Stand Alone Forms: Patient Portal/API
[2025-02-01 23:30] VITALS: PULSE 75; RESP 19; O2SAT 98
[2025-02-02] VITALS: PULSE 85; RESP 20; O2SAT 97
[2025-02-02] MEDS: ACETAMINOPHEN 325 MG TABLET 650 MG PO (00:13)
[2025-02-02 00:14] VITALS: BP 135/84; PULSE 69; RESP 21; O2SAT 98
[2025-02-02 00:14] LABS: Add Manual Diff / Slide Review NO; Hematocrit 37.7 % (36-46); Hemoglobin 12.5 g/dL (12.0-16.0); Lymphocytes Absolute Auto 2300 /uL (1100-4500); Mean Corpuscular HGB Conc 33.3 % (30-36); Mean Corpuscular Hemoglobin 25.7 PG (26-34); Mean Corpuscular Volume 77.3 fL (80-100); Platelet Count 315 X10^3/uL (150-400)
[2025-02-02 00:24] LABS: Alanine Aminotransferase 45 IU/L (<35); Albumin 4.4 g/dL (3.5-5.0); Albumin Globulin Ratio 1.5 (1.0-2.8); Alkaline Phosphatase 66 U/L (38-126); Blood Urea Nitrogen 12 mg/dL (7-17); Calcium 9.1 mg/dL (8.4-10.2); Carbon Dioxide 26 mmol/L (22-32); Chloride 104 mmol/L (98-107); Estimated Glomerular Filt Rate > 60 mL/min (>60); Globulin 2.9 g/dL (1.7-4.1); Glucose 102 mg/dL (70-99); HEMOLYSIS < 15 (0-50); Magnesium 2.1 mg/dL (1.6-2.3); Potassium 4.3 mmol/L (3.4-5.1); Sodium 139 mmol/L (137-145); Total Protein 7.3 g/dL (6.3-8.2)
[2025-02-02 01:16] LABS: UR Morphine/Opiate cutoff 300 Negative (Negative); Urine MDMA Negative (Negative); Urine Methamphetamines Negative (Negative); Urine Tetrahydrocannabinol Negative (Negative); Urine Tricyclic Antidepressant Negative (Negative)
[2025-02-02 01:26] VITALS: PULSE 86; O2SAT 98
[2025-02-02 01:27] VITALS: PULSE 82; O2SAT 99
[2025-02-02 01:27] LABS: Troponin I < 0.012 ng/mL (0.01-0.034)
[2025-02-02 01:50] VITALS: O2SAT 81
[2025-02-02 02:07] VITALS: BP 140/75; PULSE 78; RESP 16; O2SAT 98
== END 2025-02-02 01:55 | disposition home or self-care (01) ==
PROVIDERS: Emergency Provider Emergency Medicine
DX: R00.2 Palpitations (principal); T43.295A Adverse effect of other antidepressants, initial encounter
CPT/HCPCS: 36415; 80053; 80305; 81025; 83735; 84484; 85025; 93005; 99283; 99284